=== PATIENT | female | born 1965 | race Caucasian/White ===

== ENCOUNTER 2022-03-31 15:52 | Outpatient (CLI) | payer OTHER, SELFPAY ==
[2022-03-31 10:15] LABS: Albumin* 4.4 g/dL (3.3-5.0); Chloride* 105 mmol/L (96-114); Sodium* 140 mmol/L (135-149)
[2022-03-31 10:17] LABS: Bilirubin Total* 0.7 mg/dL (0.1-1.5); Carbon Dioxide* 28 mmol/L (20-32); Cholesterol* 196 mg/dL (90-199); Estimated Glomerular Filt Rate 65 ml/min; Total Protein* 7.4 g/dL (6.0-8.3)
[2022-03-31 10:18] LABS: Alanine Aminotransferase* 35 U/L (4-35); Alkaline Phosphatase* 115 U/L (40-150); Aspartate Amino Transferase* 25 U/L (12-35); Blood Urea Nitrogen* 21 mg/dL (7-30); Glucose* 117 mg/dL (60-115); HDL Cholesterol* 46 mg/dL (>=50); LDL Cholesterol Calculated 115 mg/dL (<100); Triglycerides* 175 mg/dL (40-149)
== END 2022-03-31 15:53 | disposition home or self-care (01) ==
PROVIDERS: PCP Nurse Practitioner Family; Visit Provider Nurse Practitioner Family
DX: E03.9 Hypothyroidism, unspecified (principal); E78.5 Hyperlipidemia, unspecified; Z51.81 Encounter for therapeutic drug level monitoring
CPT/HCPCS: 80053; 80061; 84443

== ENCOUNTER 2022-12-20 10:34 | Outpatient (CLI) | payer OTHER, SELFPAY ==
--- NOTE | 2022-12-20 10:45 | CRLHL7_ITS ---
For Patients: As a result of the Century Cures Act, medical imaging exams and procedure reports are released immediately into your electronic medical record. You may view this report before your referring provider. If you have questions, please contact your health care provider. BILATERAL SCREENING MAMMOGRAM WITH COMPUTER-AIDED DETECTION AND TOMOSYNTHESIS TECHNIQUE: CC and MLO views were obtained. These mammographic images have been obtained using full-field digital technique. These mammographic images were interpreted with the benefit of computer-aided detection. Breast Tomosynthesis was used in this interpretation. COMPARISON FILM: 04/30/21, 05/01/20, 01/18/19 FINDINGS: There are scattered areas of fibroglandular density. IMPRESSION: There is no radiographic evidence for malignancy. ASSESSMENT: BI-RADS Category 1: Negative RECOMMENDATION: Routine screening mammogram in 1 year. A lay language report of this examination will be provided to the patient. All Monae M.D. Diagnostic Radiologist [email or web address] DREAD/mark PT/Dictated by: All Monae MD @ 12/20/2022 11:28:00 AM (Electronically Signed)
== END 2022-12-20 10:35 | disposition home or self-care (01) ==
LOC: MAMMO 10:35
PROVIDERS: PCP Nurse Practitioner Family; Visit Provider Nurse Practitioner Family
DX: Z12.31 Encounter for screening mammogram for malignant neoplasm of breast (principal)
CPT/HCPCS: 77063; 77067

== ENCOUNTER 2023-03-29 08:04 | Outpatient (CLI) | payer OTHER, SELFPAY | END 2023-03-29 08:05 | disposition home or self-care (01) | PROVIDERS: PCP Nurse Practitioner Family; Visit Provider Nurse Practitioner Family | DX: Z00.00 Encounter for general adult medical examination without abnormal findings (principal); E03.9 Hypothyroidism, unspecified; E78.5 Hyperlipidemia, unspecified; R73.03 Prediabetes; R03.0 Elevated blood-pressure reading, without diagnosis of hypertension; E66.01 Morbid (severe) obesity due to excess calories | CPT/HCPCS: 80053; 80061; 84443; 85025 ==

== ENCOUNTER 2023-09-29 09:08 | Outpatient (CLI) | payer OTHER, SELFPAY | END 2023-09-29 09:09 | disposition home or self-care (01) | PROVIDERS: PCP Nurse Practitioner Family; Visit Provider Nurse Practitioner Family | DX: E78.5 Hyperlipidemia, unspecified (principal); E03.9 Hypothyroidism, unspecified; R03.0 Elevated blood-pressure reading, without diagnosis of hypertension; R73.03 Prediabetes; E66.01 Morbid (severe) obesity due to excess calories; M79.10 Myalgia, unspecified site; R20.2 Paresthesia of skin; Z82.69 Family history of other diseases of the musculoskeletal system and connective tissue | CPT/HCPCS: 80053; 82306; 82553; 82607; 83735; 84443; 85651; 86039; 86140; 86812 ==

== ENCOUNTER 2023-12-27 15:03 | Outpatient (CLI) | payer OTHER, SELFPAY ==
--- NOTE | 2023-12-27 15:20 | CRLHL7_ITS ---
For Patients: As a result of the Century Cures Act, medical imaging exams and procedure reports are released immediately into your electronic medical record. You may view this report before your referring provider. If you have questions, please contact your health care provider. BILATERAL SCREENING MAMMOGRAM WITH COMPUTER-AIDED DETECTION AND TOMOSYNTHESIS TECHNIQUE: CC and MLO views were obtained. These mammographic images have been obtained using full-field digital technique. These mammographic images were interpreted with the benefit of computer-aided detection. Breast Tomosynthesis was used in this interpretation. COMPARISON FILM: 12/20/22, 04/30/21, 05/01/20. FINDINGS: The breasts are almost entirely fatty. IMPRESSION: There is no radiographic evidence for malignancy. ASSESSMENT: BI-RADS Category 1: Negative RECOMMENDATION: Routine screening mammogram in 1 year. A lay language report of this examination will be provided to the patient. All Monae M.D. Diagnostic Radiologist [email or web address] SP/Dictated by: All Monae MD @ 12/28/2023 10:54:00 AM (Electronically Signed)
== END 2023-12-27 15:04 | disposition home or self-care (01) ==
LOC: MAMMO 15:03
PROVIDERS: PCP Nurse Practitioner Family; Visit Provider Nurse Practitioner Family
DX: Z12.31 Encounter for screening mammogram for malignant neoplasm of breast (principal)
CPT/HCPCS: 77063; 77067

== ENCOUNTER 2024-01-17 14:44 | Outpatient (CLI) | payer OTHER, SELFPAY | END 2024-01-17 14:45 | disposition home or self-care (01) | LOC: NFLDREF 15:25 | PROVIDERS: PCP Nurse Practitioner Family; Referring Provider Nurse Practitioner Family; Visit Provider Nurse Practitioner Family | DX: R39.9 Unspecified symptoms and signs involving the genitourinary system (principal) | CPT/HCPCS: 81001; 87086; 87186 ==

== ENCOUNTER 2024-03-30 08:09 | Outpatient (CLI) | payer OTHER, SELFPAY | END 2024-03-30 08:10 | disposition home or self-care (01) | PROVIDERS: PCP Nurse Practitioner Family; Visit Provider Nurse Practitioner Family | DX: E03.9 Hypothyroidism, unspecified (principal); R53.83 Other fatigue; R73.03 Prediabetes; E78.5 Hyperlipidemia, unspecified | CPT/HCPCS: 80053; 80061; 82306; 84439; 84443; 85025 ==

== ENCOUNTER 2024-04-05 11:42 | Outpatient (CLI) | payer OTHER, SELFPAY ==
[2024-04-05 16:06] LABS: PCR FLU A POSITIVE PCR FLU A (Negative); PCR FLU B Negative PCR FLU B (Negative); PCR RSV Negative PCR RSV (Negative); SARS PCR* Negative SARS-CoV-2 (Negative)
== END 2024-04-05 11:43 | disposition home or self-care (01) ==
LOC: KYNREF 11:42
PROVIDERS: PCP Nurse Practitioner Family; Visit Provider Nurse Practitioner Family
DX: J11.1 Influenza due to unidentified influenza virus with other respiratory manifestations (principal)
CPT/HCPCS: 87637

== ENCOUNTER 2024-04-09 11:30 | Outpatient (CLI) | payer OTHER, SELFPAY | END 2024-04-09 11:31 | disposition home or self-care (01) | LOC: KYNREF 11:31 | PROVIDERS: PCP Nurse Practitioner Family; Visit Provider Nurse Practitioner Family | DX: E78.5 Hyperlipidemia, unspecified (principal); E03.9 Hypothyroidism, unspecified; R05.9 Cough, unspecified; R03.0 Elevated blood-pressure reading, without diagnosis of hypertension; R73.03 Prediabetes; K11.20 Sialoadenitis, unspecified | CPT/HCPCS: 80061; 84439; 84443; 85025 ==

== ENCOUNTER 2024-04-19 15:45 | Outpatient (CLI) | payer OTHER, SELFPAY ==
--- NOTE | 2024-04-19 16:00 | CRLHL7_ITS ---
For Patients: As a result of the Century Cures Act, medical imaging exams and procedure reports are released immediately into your electronic medical record. You may view this report before your referring provider. If you have questions, please contact your health care provider. INDICATION: Right-sided neck pain. COMPARISON: None. TECHNIQUE: CT soft tissue neck with IV contrast. Isovue 370, 111 cc FINDINGS: Asymmetric mild enlargement of the right parotid gland compared the left. Otherwise, there is no abnormal enhancement or inflammation. No intra glandular mass. No obstructing sialolith. Normal bilateral submandibular glands. Atrophic thyroid gland. No enlarged lymph nodes within the neck bilaterally, particular on the right. No supraclavicular superior mediastinal adenopathy. Nasopharynx and oropharynx are clear. No inflammation within the paravertebral fat pads or retropharyngeal space. Normal thickness of the epiglottis. Normal glottis with symmetric vocal cords. Lung apices are clear. Normal alignment of the cervical spine. Visualized paranasal sinuses mastoid air cells are clear. Partially visualized orbits are unremarkable. IMPRESSION: 1. Asymmetric mild enlargement of the right parotid gland compared to left but no corresponding enhancement or inflammation. Finding may represent a normal anatomic variant. 2. Atrophic thyroid gland. 3. No adenopathy. 4. Normal deep soft tissues of the neck Please note that all CT scans at this facility use dose modulation, iterative reconstruction, and/or weight-based dosing when appropriate to reduce radiation dose to as low as reasonably achievable. Dictated by Connor Guan MD @ 04/20/2024 8:49:07 AM (Electronically Signed)
== END 2024-04-19 15:46 | disposition home or self-care (01) ==
LOC: CT 15:46
PROVIDERS: PCP Nurse Practitioner Family; Visit Provider Nurse Practitioner Family
DX: M54.2 Cervicalgia (principal)
CPT/HCPCS: 70491; Q9967

== ENCOUNTER 2024-06-19 15:14 | Outpatient (CLI) | payer OTHER, SELFPAY | END 2024-06-19 15:15 | disposition home or self-care (01) | PROVIDERS: PCP Nurse Practitioner Family; Visit Provider Nurse Practitioner Family | DX: E78.5 Hyperlipidemia, unspecified (principal); E03.9 Hypothyroidism, unspecified | CPT/HCPCS: 80061; 84443 ==